=== PATIENT | male | born 1965 | race Two or more races ===

== ENCOUNTER 2025-06-01 19:44 | Inpatient (IN) | payer BC, OTHER ==
[~2025-06-01] VITALS: Ht 172.7 cm; Wt 69.4 kg
--- NOTE | 2025-06-01 21:22 | DVH ---
CT BRAIN WITHOUT CONTRAST HISTORY: DIZZINESS TECHNIQUE: Axial scans were obtained from the skull base through the vertex without contrast. Sagitta l and coronal reformats were generated. One or more of the following radiation dose reduction techniq ues were used for this examination: automated exposure control, adjustment of the mA and/or kV accord ing to patient size, use of iterative reconstruction technique. COMPARISON: None FINDINGS: No acute intracranial hemorrhage or evidence of large vessel territorial infarction identified at thi s time. No midline shift. The basilar cisterns are patent. Yanez-white differentiation appears relati vely preserved. The visualized paranasal sinuses and mastoid air cells are clear. No grossly displaced calvarial abno rmalities identified. IMPRESSION: No acute intracranial findings.
[2025-06-01 22:25] LABS: Hematocrit 47.2 % (41.0-53.0); Hemoglobin 16.0 g/dL (13.5-17.5); Mean Corpuscular Hemoglobin 30.1 pg (28.0-32.0); Mean Corpuscular Volume 88.8 fL (80.0-100.0); Nucleated Red Blood Cells % 0.1 %
[2025-06-01 22:32] LABS: Chloride 106 mmol/L (98-107); Potassium 4.4 mmol/L (3.5-5.1); Sodium 141 mmol/L (136-145)
[2025-06-01 22:33] LABS: Anion Gap 6 (5-15); Calcium 9.6 mg/dL (8.7-10.4); Carbon Dioxide 29 mmol/L (20-31)
[2025-06-01 22:38] LABS: BUN/Creatinine Ratio 13.5 (10.0-20.0); Blood Urea Nitrogen 15 mg/dL (9-23)
[2025-06-01 22:39] LABS: Glucose 121 mg/dL (74-106)
--- NOTE | 2025-06-01 22:49 | ED.PDOC ---
HPI (NEURO) HPI Comments 60-year-old male with history of diabetes brought in by private car, referred by [facility] for evaluation of a head injury with resultant dizziness, right eyelid droop, and jaw weakness. Patient states he lost his balance and fell about a week ago, hitting the occipital part of his head on the ground and losing consciousness for what he states was a few minutes. He did not seek medical attention at that time. He states that since the fall, he has had dizziness, an occipital headache, and difficulty chewing due to jaw weakness. He also reports that he woke up the next morning after the fall with a drooping right eyelid. He denies any other areas of focal weakness, nausea or vomiting. Chief Complaint: Dizziness Time Seen by MD: 23:05 Reviewed Notes: Nurses Notes Information Source: Patient Mode of Arrival: Ambulatory Severity: Moderate Dizziness/Weakness Severity: Unable to do activities Headache Severity: Moderate Timing: Days Duration: Intermittent Past Medical History PAST MEDICAL HISTORY: DM Surgical History: Hernia Repair Family History Family History: Reviewed,noncontributory to illness Social History Smoker: Non-Smoker Alcohol: Denies ETOH Use Drugs: Denies Drug Use Lives In: Home Constitutional: denies: chills, diaphoresis, fatigue, fever, malaise, sweats, weakness, others EENTM: denies: blurred vision, double vision, ear bleeding, ear discharge, ear drainage, ear pain, ear ringing, eye pain, eye redness, hearing loss, mouth pain, mouth swelling, nasal discharge, nose bleeding, nose congestion, nose pain, photophobia, tearing, throat pain, throat swelling, voice changes, others Respiratory: denies: cough, hemoptysis, orthopnea, SOB at rest, shortness of breath, SOB with excertion, stridor, wheezing, others Cardiovascular: denies: chest pain, dizzy spells, diaphoresis, Dyspnea on exertion, edema, irregular heart beat, left arm pain, lightheadedness, palpitations, PND, syncope, others Gastrointestinal: denies: abdomen distended, abdominal pain, blood streaked bowels, constipated, diarrhea, dysphagia, difficulty swallowing, hematemesis, melena, nausea, poor appetite, poor fluid intake, rectal bleeding, rectal pain, vomiting, others Genitourinary: denies: burning, dysuria, flank pain, frequency, hematuria, incontinence, penile discharge, penile sore, pain, testicle pain, testicle swelling, urgency, others Neurological: reports: dizziness, headache, right sided weakness (facial), others (imbalance); denies: fainting, left sided numbness, left sided weakness, numbness, paresthesia, pre-existing deficit, seizure, speech problems, tingling, tremors, weakness Musculoskeletal: denies: back pain, gout, joint pain, joint swelling, muscle pain, muscle stiffness, neck pain, others Integumetry: denies: bruises, change in color, change in hair/nails, dryness, laceration, lesions, lumps, rash, wounds, others Allergic/Immunocompromised: denies: Difficulty Healing, Frequent Infections, Hives, Itching, others Hematologic/Lymphatic: denies: anemia, blood clots, easy bleeding, easy bruising, swollen glands, others Endocrine: denies: excessive hunger, excessive sweating, excessive thirst, excessive urination, flushing, intolerance to cold, intolerance to heat, unexplained weight gain, unexplained weight loss, others Psychiatric: denies: anxiety, bipolar disorder, depression, hopeless, panic disorder, schizophrenia, sleepless, suicidal, others All Other Systems: Reviewed and Negative (Comprehensive systems review obtained and negative except for what is stated in the HPI.) Physical Exam General Appearance: No Apparent Distress HEENT: PERRL/EOMI, Other (Pupils equal, subtle loss of right nasolabial fold. Right eyelid ptosis.) Neck: Full Range of Motion, Non-Tender, Normal Inspection, Supple Respiratory: Lungs Clear, No Accessory Muscle Use, No Respiratory Distress, Normal Breath Sounds Cardiovascular: No Edema, No JVD, Regular Rate/Rhythm Breast Exam: Deferred Gastrointestinal: Non Tender, Soft Genitalia: Deferred Pelvic: Deferred Rectal: Deferred Extremities: Normal inspection, Normal range of motion, Non-tender, No pedal edema Neurologic: Alert (Oriented x4), Normal Affect, Normal Mood, Other (Very subtle loss of the nasolabial fold on the right, right eyelid ptosis) Cerebellar Function: NOT DONE Reflexes: NOT DONE Skin: Dry, Normal Color, Warm Lymphatic: NOT DONE Was a procedure done? Was a procedure done?: No Differential Diagnosis (SZ) CVA: CVA, Electrolyte Imbalance, TIA Headache: Closed Head Injury, Epidural Hemorrhage, Intracerebral Hemorrhage, Subarachnoid Hemorrhage, Subdural Hemorrhage X-Ray, Labs, Meds, VS Vital Signs Date Time Temp Pulse Resp B/P (MAP) Pulse Ox O2 Delivery O2 Flow Rate FiO2 06/01/25 19:49 98.3 84 16 117/81 98 98.3 Lab Test 06/01/25 22:52 06/01/25 22:12 Range/Units Troponin I High Sensitivity 21 21 </=54 ng/L White Blood Count 10.8 4.4-10.8 10^3/uL Red Blood Count 5.32 4.5-5.90 10^6/uL Hemoglobin 16.0 13.5-17.5 g/dL Hematocrit 47.2 41.0-53.0 % Mean Corpuscular Volume 88.8 80.0-100.0 fL Mean Corpuscular Hemoglobin 30.1 28.0-32.0 pg Mean Corpuscular Hemoglobin Concent 33.8 32.0-36.0 g/dL Red Cell Distribution Width 14.4 H 11.8-14.3 % Platelet Count 261 140-450 10^3/uL Mean Platelet Volume 9.1 6.9-10.8 fL Neutrophils (%) (Auto) 56.0 37.0-80.0 % Lymphocytes (%) (Auto) 35.2 10.0-50.0 % Monocytes (%) (Auto) 6.5 0.0-12.0 % Eosinophils (%) (Auto) 2.1 0.0-7.0 % Basophils (%) (Auto) 0.2 0.0-2.0 % Neutrophils # (Auto) 6.0 1.6-8.6 10 ^3/uL Lymphocytes # (Auto) 3.8 0.4-5.4 10 ^3/uL Monocytes # (Auto) 0.7 0-1.3 10 ^3/uL Eosinophils # (Auto) 0.2 0-0.8 10 ^3/uL Basophils # (Auto) 0 0-0.2 10 ^3/uL Nucleated Red Blood Cells 0.1 % Sodium Level 141 136-145 mmol/L Potassium Level 4.4 3.5-5.1 mmol/L Chloride Level 106 98-107 mmol/L Carbon Dioxide Level 29 20-31 mmol/L Anion Gap 6 5-15 Blood Urea Nitrogen 15 9-23 mg/dL Creatinine 1.11 0.700-1.30 mg/dL Glomerular Filtration Rate Calc 77 >90 mL/min BUN/Creatinine Ratio 13.5 10.0-20.0 Serum Glucose 121 H 74-106 mg/dL Calcium Level 9.6 8.7-10.4 mg/dL B-Type Natriuretic Peptide 32.66 0-100 pg/mL CT BRAIN WITHOUT CONTRAST HISTORY: DIZZINESS TECHNIQUE: Axial scans were obtained from the skull base through the vertex without contrast. Sagittal and coronal reformats were generated. One or more of the following radiation dose reduction techniques were used for this examination: automated exposure control, adjustment of the mA and/or kV according to patient size, use of iterative reconstruction technique. COMPARISON: None FINDINGS: No acute intracranial hemorrhage or evidence of large vessel territorial infarction identified at this time. No midline shift. The basilar cisterns are patent. Yanez-white differentiation appears relatively preserved. The visualized paranasal sinuses and mastoid air cells are clear. No grossly displaced calvarial abnormalities identified. IMPRESSION: No acute intracranial findings. X-Ray, Labs, Meds, VS Comment 60-year-old male with a history of diabetes referred by [facility] for evaluation of right eyelid ptosis and jaw weakness, associated with dizziness and headache after a fall with head trauma and loss of consciousness 1 week ago Vitals unremarkable Exam remarkable for subtle loss of nasolabial fold on the right with right eyelid ptosis Rhythm strip independently interpreted by me: Sinus rhythm, rate 84, no ectopy. Head CT unremarkable CBC, basic metabolic panel, BNP and troponin unremarkable No acute treatment indicated in the ED Plan is to admit the patient for brain MRI and neuro evaluation Case discussed with RONY Rausch, who will admit the patient. Time of 1ST Reevaluation: 23:07 Reevaluation 1ST: Unchanged Patient Education/Counseling: Diagnosis, Treatment, Need For Follow Up Family Education/Counseling: No Family Present Departure 1 Departure Time of Disposition: 23:20 Impression: Primary Impression: Traumatic injury of head with loss of consciousness Additional Impression: Ptosis, right eyelid Disposition: ADMITTED INPATIENT Admit to: Tele Condition: Guarded Critical Care Note Critical Care Time?: No Stability Stability form required: No Heart Score Heart Score: Heart Score Response (Comments) Value History N/A 0 EKG N/A 0 Age N/A 0 Risk Factors N/A 0 Troponin N/A 0 Total 0 I personally scribed for DUNCAN BELTRAN MD (JONATHANCHLOÉ) on 06/01/25 at 22:49. Electronically submitted by Benton Salvador ([facility]). I personally scribed for DUNCAN BELTRAN MD (JONATHANCHLOÉ) on 06/01/25 at 23:00. Electronically submitted by Benton Salvador ([facility]). I personally scribed for [facility]UNC[facility] BELTRAN [facility] on 06/01/25 at 23:07. Electronically submitted by Benton Salvador ([facility]). I personally scribed for DUNCAN BELTRAN MD ([facility] on 06/01/25 at 23:15. Electronically submitted by Benton Salvador ([facility]). DUNCAN BELTRAN MD Jun 01, 2025 22:49
[2025-06-01] MEDS ORDERED: ACETAMINOPHEN 325 MG TAB PO PRN (23:45)
[2025-06-01] MEDS ORDERED: ONDANSETRON HCL 4 MG/2 ML VIAL IV PRN (23:45)
--- NOTE | 2025-06-02 00:58 | DVHHP2 ---
Admitting Diagnosis: Dizziness, ptosis right eye ,status post Fall, r/o cva History of Present Illness History Source: Patient Exam Limitations: No limitations HPI Mr. Alex Dickerson is a 60-year-old male with a history of diabetes, patient was referred by [facility] urgent care for evaluation of a head injury with resultant dizziness, right eyelid droop, and jaw weakness. Patient states he lost his balance and fell about a week ago, hitting the occipital part of his head on the ground and losing consciousness for what he states was a few minutes. He did not seek medical attention at that time. He states that since the fall, he has had dizziness, an occipital headache, and difficulty chewing due to jaw weakness. He also reports that he woke up the next morning after the fall with a drooping right eyelid. He denies any other areas of focal weakness, nausea or vomiting. Past Medical History Cardiac: No pertinent Hx Pulmonary: No pertinent Hx Central Nervous System: No pertinent Hx GI: No pertinent Hx Hemotology/Oncology: No pertinent Hx Hepatobiliary: No pertinent Hx Psychiatric: No pertinent Hx Musculoskeletal: No pertinent Hx Rheumotologic: No pertinent Hx Infectious Disease: No peritnent Hx ENT: No pertinent Hx Renal/: No pertinent Hx Endocrine: NIDDM Dermatology: No pertinent Hx Smoker: <1 pack per day Alocohol: None Drugs: None Lives with: With family Domestic Violence: Neg Review of Systems Constitutional: Weakness (right side, right eye ptosis) Ears, Nose, & Throat: No symptom reported Eyes: No symptom reported Pulmonary/Respiratory: No symptom reported Cardiovascular: No symptom reported Gastrointestinal: No symptom reported Genitourinary: No symptom reported Musculoskeletal: No symptom reported Skin: No symptom reported Psychiatric: No symptom reported Endocrine: No symptom reported Hemotologic/Lymphatic: No symptom reported All Other Systems Dizziness H&P Exam Vital Signs Vital Signs Date Time Temp Pulse Resp B/P (MAP) Pulse Ox O2 Delivery O2 Flow Rate FiO2 06/01/25 19:49 98.3 84 16 117/81 98 98.3 General Appeara: Well developed, Well nourished, Normal Appearance Head Exam: Normal inspection Neck Exam: Normal inspection, Non-tender, Normal alignment Eye Exam: bilateral eye Normal inspection, bilateral eye PERRL, bilateral eye EOMI Ear Exam: bilateral ear Auricle normal Nasal Exam: Normal inspection Mouth: Normal Inspection Pulmonary/Respiratory: Normal inspection, Normal breath sounds, Chest non- tender, Lungs clear Cardiovascular/Chest: Normal inspection, Regular rate, Normal Rhythm Peripheral Pulses: 2+ dorsalis pedis (R), 2+ dorsalis pedis (L), 2+ Radial (R), 2+ Radial (L) Abdominal Exam: Normal bowel sounds, Soft, No tenderness Rectal Exam: Deferred Back Exam: Normal inspection Hand Exam: Other (right sided weakness) AUDITOR TAX Exam: Normal hearing, Normal speech, PERRL, Other (right eye ptosis) Motor/Sensory: Normal sensory function, Weak motor strength RUE Neuro/Mental St: Alert, Oriented Appearance: Appropriate appearance, Appropriate insight Eye contact/ Speech: Cooperative, Good eye contact, Normal speech Thoughts/Psych: Normal thought pattern Skin Exam: Normal inspection, Normal color, Warm/dry SEPSIS Sepsis Screen Date sepsis recognized/suspect: Jun 01, 2025 Time Sepsis recognized/suspect: 1954 Recent Procedure: No Respiratory Rate >20: No Heart Rate >90: No Temp<36 C (96.8 F) or >38.3 C: No SBP <90 or MAP <65 mmHG: No New Acute Mental Status Change: No Is the patient on CPAP, BIPAP,: No Physician Orders Head Without Contrast (06/01/25 20:01) Urinalysis (06/01/25 22:01) Electrocardigram (06/01/25 22:01) Admit (06/01/25 23:35) Brain Head Wo Contrast (06/01/25 23:35) * Neurology Consult (06/01/25 23:35) Echo 2d Mode Cardiac Dop (06/01/25 23:35) * Cardiology Consult (06/01/25 23:35) Consistent Carb(Ccho)Diabetes (06/02/25 Breakfast) Full Code (06/01/25 23:35) Stat Ekg For Chest Pain (06/01/25 23:35) Notify Md Of Changes From Base (06/01/25 23:35) Ceramic Coater Machine For 24 Hours (06/01/25 23:35) Emergency Dysrhythmia Protocol (06/01/25 23:35) Rhythm Strips Once Every Shift (06/01/25 23:35) Oxygen By Nasal Cannula (06/01/25 23:35) Vitamin B12 (06/02/25 04:00) Ondansetron Hcl (Zofran) (06/01/25 23:45) Acetaminophen Tablet (Tylenol Tablet) (06/01/25 23:45) Famotidine Tablet (Pepcid Tablet) (06/02/25 10:00) Sequential Compression Device (06/01/25 23:35) Vital Signs Date Time Temp Pulse Resp B/P (MAP) Pulse Ox O2 Delivery O2 Flow Rate FiO2 06/01/25 19:49 98.3 84 16 117/81 98 98.3 Laboratory Tests Test 06/01/25 22:12 White Blood Count 10.8 10^3/uL (4.4-10.8) Labs/Xrays Labs Test 06/01/25 22:52 06/01/25 22:12 Range/Units Troponin I High Sensitivity 21 </=54 ng/L White Blood Count 10.8 4.4-10.8 10^3/uL Red Blood Count 5.32 4.5-5.90 10^6/uL Hemoglobin 16.0 13.5-17.5 g/dL Hematocrit 47.2 41.0-53.0 % Mean Corpuscular Volume 88.8 80.0-100.0 fL Mean Corpuscular Hemoglobin 30.1 28.0-32.0 pg Mean Corpuscular Hemoglobin Concent 33.8 32.0-36.0 g/dL Red Cell Distribution Width 14.4 H 11.8-14.3 % Platelet Count 261 140-450 10^3/uL Mean Platelet Volume 9.1 6.9-10.8 fL Neutrophils (%) (Auto) 56.0 37.0-80.0 % Lymphocytes (%) (Auto) 35.2 10.0-50.0 % Monocytes (%) (Auto) 6.5 0.0-12.0 % Eosinophils (%) (Auto) 2.1 0.0-7.0 % Basophils (%) (Auto) 0.2 0.0-2.0 % Neutrophils # (Auto) 6.0 1.6-8.6 10 ^3/uL Lymphocytes # (Auto) 3.8 0.4-5.4 10 ^3/uL Monocytes # (Auto) 0.7 0-1.3 10 ^3/uL Eosinophils # (Auto) 0.2 0-0.8 10 ^3/uL Basophils # (Auto) 0 0-0.2 10 ^3/uL Nucleated Red Blood Cells 0.1 % Sodium Level 141 136-145 mmol/L Potassium Level 4.4 3.5-5.1 mmol/L Chloride Level 106 98-107 mmol/L Carbon Dioxide Level 29 20-31 mmol/L Anion Gap 6 5-15 Blood Urea Nitrogen 15 9-23 mg/dL Creatinine 1.11 0.700-1.30 mg/dL Glomerular Filtration Rate Calc 77 >90 mL/min BUN/Creatinine Ratio 13.5 10.0-20.0 Serum Glucose 121 H 74-106 mg/dL Calcium Level 9.6 8.7-10.4 mg/dL B-Type Natriuretic Peptide 32.66 0-100 pg/mL Assessment/Plan Problem List: (1) Dizziness (2) Traumatic injury of head with loss of consciousness (3) Ptosis, right eyelid Plan This is a 60 yo male with known history of DM who presents to the hospital with dizziness, ptosis of right eye status post fall x 1 week ago. 1. Dizziness 2. Ptosis right eye 3. status post fall 4. r/o CVA 5. DM type 2 Plan Admit Telemetry Neurology consultation, MRI Brain wo contrast , ASA, Statin Lipid panel, A1C level PT evaluation, OT evaluation, swallow evaluation Cardiology consultation 2D echocardiogram Fall Precautions Smoking cessation education Glucose monitoring ac & hs coverage with low dose regular insulin sliding scale Discussed all above with patient who verbalizes agreement and understanding of care plan. All questions were answered. Discussed with supervising MD. Plan discussed with: Patient, Other Code Visit Code Visit Total Time (mins): 45 Additional Comments Additional Comments Additional Comments Patient's chart is reviewed and discussed with the nurse practitioner. Patient is seen evaluated and admitted by H[facility]IC[facility] DETECTIVE this morning. I have evaluated him later today. His right eye droop has improved. Patient's MRI shows a possible stroke. I agree with the nurse practitioner's evaluation, documentation, assessment and care plan as outlined. DAVID HAIDER Jun 02, 2025 00:58 ABDIFATAH OLIVEIRA MD Jun 02, 2025 15:44
[2025-06-02 04:19] LABS: Triglycerides 219 mg/dL (< 150)
[2025-06-02 04:20] LABS: Cholesterol 175 mg/dL (< 200)
[2025-06-02 04:21] LABS: HDL Cholesterol 34 mg/dL (40-59)
[2025-06-02] MEDS ORDERED: DEXTROSE (50%) 50ML SYRG IV PRN (06:15)
[2025-06-02 06:31] LABS: Hematocrit 44.5 % (41.0-53.0); Hemoglobin 15.2 g/dL (13.5-17.5); Mean Corpuscular Hemoglobin 30.2 pg (28.0-32.0); Mean Corpuscular Volume 88.4 fL (80.0-100.0); Nucleated Red Blood Cells % 0.2 %
[2025-06-02 06:32] LABS: Chloride 107 mmol/L (98-107); Potassium 4.3 mmol/L (3.5-5.1); Sodium 143 mmol/L (136-145)
[2025-06-02 06:33] LABS: Anion Gap 7 (5-15); Calcium 9.4 mg/dL (8.7-10.4); Carbon Dioxide 29 mmol/L (20-31)
[2025-06-02 06:38] LABS: BUN/Creatinine Ratio 14.0 (10.0-20.0); Blood Urea Nitrogen 15 mg/dL (9-23); Glucose 115 mg/dL (74-106)
[2025-06-02 06:40] LABS: INR 0.94 (0.9-1.15); Prothrombin Time 10.0 sec (9.3-11.8)
[2025-06-02] MEDS: ACCU-CHEK COMFORT CURVE STRIP VI SCH (07:00)
[2025-06-02] MEDS: InsuLIN REG 1unit/0.01ml Soln (100units/ml) SC SCH (07:00)
[2025-06-02] MEDS: ASPirin-EC 81 mg tab PO SCH (08:51)
[2025-06-02] MEDS ORDERED: ASPirin-EC 81 mg tab PO SCH (10:00)
[2025-06-02] MEDS: FAMOTIDINE 20 MG TAB PO SCH (10:53)
--- NOTE | 2025-06-02 13:32 | DVH ---
CLINICAL INDICATION: dizziness COMPARISON: CT HEAD WITHOUT CONTRAST on DOS: 06/01/25 TECHNIQUE: Multisequence multiplanar MRI images of the brain were obtained without contrast. FINDINGS: Small focus of restricted diffusion in the head of the left caudate nucleus measuring up t o 4 mm, suspected acute or subacute infarct. No mass or midline shift. Scattered areas of T2/FLAIR hy perintense signal in the periventricular and subcortical white matter are nonspecific, but most likel y sequelae of chronic small vessel ischemic disease. Ventricles and sulci are within normal limits. B pramod cisterns are patent. Cerebellum, brainstem, and midline structures are otherwise within normal l imits. Paranasal sinuses are clear. Orbits are grossly unremarkable. IMPRESSION: 1. Acute or subacute lacunar infarct in the head of the left caudate nucleus. 2. Nonacute findings as described above.
[2025-06-02] MEDS: IOHEXOL 350 MG/ML 100ML IJ ONE (14:01)
[2025-06-02 14:21] VITALS: BP 136/82; PULSE 68; RESP 18; TEMP 97.2; O2SAT 97
[2025-06-02 14:35] VITALS: BP 136/82; PULSE 68; RESP 18; TEMP 97.2; O2SAT 97
--- NOTE | 2025-06-02 14:57 | DVH ---
CLINICAL INFORMATION: Transient ischemic attack. TECHNIQUE: Axial CTA images of the head and neck were obtained after the uneventful administration o f 100 mL Omnipaque 350 IV contrast. Coronal and sagittal reformatted images and MIP images were obtai james, reviewed, and stored. Measurements of carotid stenosis are made per NASCET criteria. All CT scan s at this medical facility are performed using dose modulation techniques as appropriate to a perform ed exam including the following: Automated exposure control was utilized; adjustment of the MA and/or KV according to patient size; and use of iterative reconstruction technique. CTDIvol = 22.35, 31.05, 0.07, 0.07 mGy DLP = 933.92 mGy-cm COMPARISON: MRI BRAIN HEAD WO CONTRAST on DOS: 06/02/25, CT HEAD WITHOUT CONTRAST on DOS: 06/01/25 FINDINGS: Motion artifact limits evaluation for subtle findings. CTA HEAD: Posterior cerebral arteries, basilar artery, and intracranial segments of the distal verteb ral arteries are normal in caliber and course with no evidence of aneurysm, large vessel occlusion, s ignificant stenosis, or vascular malformation. The anterior and middle cerebral arteries and intracra nial segments of the distal internal carotid arteries are normal in caliber and course with no eviden ce of aneurysm, large vessel occlusion, significant stenosis, or vascular malformation. CTA NECK: Normal configuration of the aortic arch with patent origins of the brachiocephalic artery, left common carotid artery, and left subclavian artery. There is mild irregular plaque of the left in ferolateral wall of the aortic arch at or slightly distal to the level of the subclavian artery origi n. Subclavian arteries are patent with no significant stenosis. Moderate noncalcified plaque of the l eft carotid bifurcation and proximal internal carotid artery without significant stenosis of the left internal carotid artery or left common carotid artery. There is severe stenosis of the proximal left external carotid artery. There is calcified and noncalcified plaque of the right carotid bifurcation without significant right carotid stenosis. Vertebral arteries are patent with no significant stenos is or evidence of dissection. IMPRESSION: 1. CTA head demonstrates no evidence of large vessel occlusion, aneurysm, or significant stenosis. 2. CTA neck demonstrates noncalcified plaque at the left carotid bifurcation and proximal internal ca rotid artery with severe stenosis of the origin of the left external carotid artery. No significant s tenosis in the left common carotid or internal carotid artery. 3. Calcified and noncalcified plaque at the right carotid bifurcation without significant stenosis. 4. No evidence of vertebral artery dissection or stenosis. 5. Small focus of irregular, predominantly noncalcified plaque at the left inferolateral wall of the aortic arch. Potentially unstable plaque, appears to be at or slightly distal to the level of the sub clavian artery origin. 6. Additional findings as detailed above.
[2025-06-02] MEDS: SODIUM CHLORIDE 0.9% 1,000 ML IV SCH (15:15)
[2025-06-02 17:00] VITALS: BP 135/81; PULSE 74; RESP 17; TEMP 97.6; O2SAT 95
[2025-06-02 20:00] VITALS: PULSE 74
[2025-06-02 21:00] VITALS: BP 131/73; PULSE 68; RESP 17; TEMP 98.2; O2SAT 96
[2025-06-02] MEDS: ATORVASTATIN 20 MG TAB PO SCH (22:20)
[2025-06-03] VITALS (8 sets, daily range): BP systolic 125–138; BP diastolic 78–97; PULSE 74–106; RESP 16–18; TEMP 97.9–98.3; O2SAT 91–97
--- NOTE | 2025-06-03 09:57 | DVHINCON2 ---
DATE OF CONSULTATION: 06/02/2025 CARDIOLOGY CONSULTATION REFERRING PHYSICIAN: CONSULTING PHYSICIAN: Lori Gant MD INDICATION: Dizziness. HISTORY OF PRESENT ILLNESS: The patient is a 60-year-old male with a history of diabetes who presented to the hospital with complaints of dizziness, right eye ptosis, and right upper extremity weakness. The patient stated that he fell about a week ago; however, did not seek any medical help at the time. He has been feeling dizzy and facial droop. He decided to come to the Emergency Room for further evaluation. He denies any prior history of heart disease known to him. He denies any palpitations. He denies any chest pain or shortness of breath. PAST MEDICAL HISTORY: Diabetes. MEDICATIONS: Per med rec. ALLERGIES: No known drug allergies. PHYSICAL EXAMINATION: GENERAL: He is alert and oriented in no form of acute cardiopulmonary distress. VITAL SIGNS: Blood pressure 130/70, pulse 68 per minute, saturation 96%. HEENT/NECK: No carotid bruits. No jugular venous distention. CHEST: Bilateral air entry, clear. No rhonchi. CARDIOVASCULAR: Precordial and carotid pulses palpable. Normal S1, S2. Regular rate and rhythm. No appreciable gallops, rubs, or clicks. EXTREMITIES: No peripheral edema. DIAGNOSTIC DATA: CBC is normal. White count 143, potassium 4.3, creatinine is 1.0. Troponin is negative. Urine tox was negative. ASSESSMENT: * Dizziness stroke * Right eye ptosis. * Diabetes. RECOMMENDATIONS: * Continue aspirin. * Continue statin therapy. * Neuro evaluation in progress. * We will review echo once completed. * Continue radiation monitor for now. Thank you for allowing me to partake in the care of this patient. MD JESUSITA Esteban/ESTELA/NIKHIL TID: [id number] RECEIPT: [id number]
--- NOTE | 2025-06-03 10:24 | DVHSR ---
APPROVED REPORT EXAM: Two-dimensional and M-mode echocardiogram with Doppler and color Doppler. Blood Pressure: 117/66 mmHg INDICATION Dizziness RISK FACTORS Height: 5'8", Weight: 153 DIMENSIONS LVDd5.5 (3.8-5.7cm)LA (2D)3.3 (1.9-4.0cm)Aortic Root3.3 (2.0-3.7cm) LVDs4.4 (2.5-4.0cm)LA (MM) (1.9-4.0cm)Aortic Cusp Exc1.3 (1.5-2.0cm) EF (%) 35.0 (55-70%)Rt. Atrium3.4 (1.9-4.0cm)Asc. Aorta cm IVSd0.9 (0.7-1.1cm)RV (D)3.3 (1.8-2.4cm) PWd0.8 (0.7-1.1cm) Mitral Valve MitralMitral Stenosis E wave0.64m/sMV Mean GR.mmHg A wave0.82m/sMV Peak GR.mmHg E/A ratio0.82D MVAcm2 DECEL [id number] 1/2 Timems Aortic Valve Aortic ValveAortic Stenosis V10.60m/Joaquina Mean GR.2mmHg V21.04m/Joaquina Peak GR.4mmHg LVOT Diameter2.0 (1.8-2.4cm)Doppler AVA1.81cm2 Pulmonic Valve V20.85m/s Conclusion [id number]% normal rv function normal atria
[2025-06-03] MEDS ORDERED: ATOR40TA52 PO (15:17)
[2025-06-03] MEDS ORDERED: ASPI-543 PO (15:17)
[2025-06-03] MEDS ORDERED: RAMI2.5C33 PO (15:17)
[2025-06-03] MEDS ORDERED: CLOP75TA70 PO (15:17)
--- NOTE | 2025-06-03 15:40 | DVHDS2 ---
Discharge Summary Date of Admission Jun 01, 2025 at 23:35 Date of Discharge: Jun 03, 2025 Labs/Diagnostic Data: Laboratory Results Test 06/03/25 11:57 06/02/25 03:40 06/01/25 22:52 06/01/25 22:12 POC Glucose 128 mg/dl (70-106) White Blood Count 12.3 10^3/uL (4.4-10.8) Red Blood Count 5.03 10^6/uL (4.5-5.90) Hemoglobin 15.2 g/dL (13.5-17.5) Hematocrit 44.5 % (41.0-53.0) Mean Corpuscular Volume 88.4 fL (80.0-100.0) Mean Corpuscular Hemoglobin 30.2 pg (28.0-32.0) Mean Corpuscular Hemoglobin Concent 34.1 g/dL (32.0-36.0) Red Cell Distribution Width 14.4 % (11.8-14.3) Platelet Count 255 10^3/uL (140-450) Mean Platelet Volume 9.8 fL (6.9-10.8) Neutrophils (%) (Auto) 56.6 % (37.0-80.0) Lymphocytes (%) (Auto) 34.3 % (10.0-50.0) Monocytes (%) (Auto) 7.2 % (0.0-12.0) Eosinophils (%) (Auto) 1.7 % (0.0-7.0) Basophils (%) (Auto) 0.2 % (0.0-2.0) Neutrophils # (Auto) 7.0 10 ^3/uL (1.6-8.6) Lymphocytes # (Auto) 4.2 10 ^3/uL (0.4-5.4) Monocytes # (Auto) 0.9 10 ^3/uL (0-1.3) Eosinophils # (Auto) 0.2 10 ^3/uL (0-0.8) Basophils # (Auto) 0 10 ^3/uL (0-0.2) Nucleated Red Blood Cells 0.2 % Prothrombin Time 10.0 sec (9.3-11.8) Prothrombin Time INR 0.94 (0.9-1.15) Sodium Level 143 mmol/L (136-145) Potassium Level 4.3 mmol/L (3.5-5.1) Chloride Level 107 mmol/L (98-107) Carbon Dioxide Level 29 mmol/L (20-31) Anion Gap 7 (5-15) Blood Urea Nitrogen 15 mg/dL (9-23) Creatinine 1.07 mg/dL (0.700-1.30) Glomerular Filtration Rate Calc 80 mL/min (>90) BUN/Creatinine Ratio 14.0 (10.0-20.0) Serum Glucose 115 mg/dL (74-106) Hemoglobin A1c 6.1 % A1C (<5.7) Calcium Level 9.4 mg/dL (8.7-10.4) Triglycerides Level 219 mg/dL (< 150) Cholesterol Level 175 mg/dL (< 200) LDL Cholesterol 126 mg/dL (< 100) HDL Cholesterol 34 mg/dL (40-59) Troponin I High Sensitivity 21 ng/L (</=54) B-Type Natriuretic Peptide 32.66 pg/mL (0-100) Other Laboratory Tests 06/02/25 03:40 Brief Hx & Hospital Course: Mr. Alex Dickerson is a 60-year-old male with a history of diabetes, patient was referred by [facility] urgent care for evaluation of a head injury with resultant dizziness, right eyelid droop, and jaw weakness. Patient states he lost his balance and fell about a week ago, hitting the occipital part of his head on the ground and losing consciousness for what he states was a few minutes. He did not seek medical attention at that time. He states that since the fall, he has had dizziness, an occipital headache, and difficulty chewing due to jaw weakness. He also reports that he woke up the next morning after the fall with a drooping right eyelid. He denies any other areas of focal weakness, nausea or vomiting. He is admitted and evaluated by backend developer. Patient had an MRI of the brain showed a acute to subacute infarction felt causing her symptoms. Patient's symptoms improved while in the hospital. His toes is also improved. However he is advised to follow up outpatient with a neurologist for follow up stroke and further evaluation of his eyelid droop/ptosis to rule out underlying myasthenia gavis. Otherwise he is advised to continue the medications he is prescribed. Given he is clinically stable not having any other issues he has been discharged home. Patient verbalized understanding his hospital diagnosis, med results, discharge medications, discharge instructions and agree with the follow up plan of care as outlined. Consults/Reason for consult PROCEDURE(s): MBHL - BRAIN HEAD WO CONTRAST REASON: dizziness ORDER NUMBER(s): [id number], ACCESSION NUMBER(s): [id number] CLINICAL INDICATION: dizziness COMPARISON: CT HEAD WITHOUT CONTRAST on DOS: 06/01/25 TECHNIQUE: Multisequence multiplanar MRI images of the brain were obtained without contrast. FINDINGS: Small focus of restricted diffusion in the head of the left caudate nucleus measuring up to 4 mm, suspected acute or subacute infarct. No mass or midline shift. Scattered areas of T2/FLAIR hyperintense signal in the periventricular and subcortical white matter are nonspecific, but most likely sequelae of chronic small vessel ischemic disease. Ventricles and sulci are within normal limits. Basal cisterns are patent. Cerebellum, brainstem, and midline structures are otherwise within normal limits. Paranasal sinuses are clear. Orbits are grossly unremarkable. IMPRESSION: 1. Acute or subacute lacunar infarct in the head of the left caudate nucleus. 2. Nonacute findings as described above. Operations or Procedures APPROVED REPORT EXAM: Two-dimensional and M-mode echocardiogram with Doppler and color Doppler. Blood Pressure: 117/66 mmHg INDICATION Dizziness RISK FACTORS Height: 5'8", Weight: 153 DIMENSIONS LVDd 5.5 (3.8-5.7cm) LA (2D) 3.3 (1.9-4.0cm) Aortic Root 3.3 (2.0- 3.7cm) LVDs 4.4 (2.5-4.0cm) LA (MM) (1.9-4.0cm) Aortic Cusp Exc 1.3 (1.5- 2.0cm) EF (%) 35.0 (55-70%) Rt. Atrium 3.4 (1.9-4.0cm) Asc. Aorta cm IVSd 0.9 (0.7-1.1cm) RV (D) 3.3 (1.8-2.4cm) PWd 0.8 (0.7-1.1cm) Mitral Valve Mitral Mitral Stenosis E wave 0.64m/s MV Mean GR. mmHg A wave 0.82m/s MV Peak GR. mmHg E/A ratio 0.8 2D MVA cm2 DECEL Time 201ms PRESS 1/2 Time ms Aortic Valve Aortic Valve Aortic Stenosis V1 0.60m/s AO Mean GR. 2mmHg V2 1.04m/s AO Peak GR. 4mmHg LVOT Diameter 2.0 (1.8-2.4cm) Doppler [place] 1.81cm2 Pulmonic Valve V2 0.85m/s Conclusion [id number]% normal rv function normal atria SIGNED BY: MANDEEP JOEL MD SIGNED DATE/TIME: 06/03/25 1024 Condition at Discharge: Stable Final Diagnosis/Problems List Acute/subacute lacunar infarction, right eye ptosis, coronary artery disease Discharge Disposition: Home Discharge Instruct/Medications Diet: Consistent carbohydrate, Cardiac 2g Na,low cholest Activity: No Restrictions, As Tolerated Follow Up/Referral: Primary care physician next week and referral to neurologist Dr. Charlotte Kaplan as soon as possible for right eye ptosis and further management of stroke Medications: As prescribed and per your discharge home med reconciliation list Scheduled Aspirin (Aspir-Low), 81 MG PO DAILY Atorvastatin Calcium (Atorvastatin Calcium), 1 TAB PO QPM Clopidogrel Bisulfate (Clopidogrel), 75 MG PO DAILY Ramipril (Ramipril), 1 CAP PO DAILY Discharge Statement: "Patient was advised to return to the ER or call 911 if any headaches, dizziness, shortness of breath, chest pain, abdominal pain, bleeding, fevers, or worsening of medical condition. Patient was counseled about treatment plan, medications, possible side effects, patientverbalized understanding. All questions were answered to the best of my ability. This discharge took greater then 30 minutes in planning, reviewing documentation, counseling the patient, and discussing with other team members." ASSESSMENT ASSESSMENT Assessment Acute/subacute lacunar infarction, right eye ptosis, coronary artery disease ABDIFATAH OLIVEIRA MD Jun 03, 2025 15:40
== END 2025-06-03 18:50 | disposition home or self-care (01) | DRG 66 ==
LOC: ER 19:44 → OVERFLOW 23:35 → TELE-CENTR 06-02 14:21
PROVIDERS: ADMIT Nurse Practitioner Family; ATTEND Nurse Practitioner Family
DX: I63.81 Other cerebral infarction due to occlusion or stenosis of small artery (principal); H02.401 Unspecified ptosis of right eyelid; E11.9 Type 2 diabetes mellitus without complications; R29.810 Facial weakness; I25.10 Atherosclerotic heart disease of native coronary artery without angina pectoris; F17.200 Nicotine dependence, unspecified, uncomplicated; Z71.6 Tobacco abuse counseling; Z79.84 Long term (current) use of oral hypoglycemic drugs
CPT/HCPCS: 36415; 70450; 70496; 70498; 70551; 80048; 80061; 82607; 82962; 83036; 83880; 84484; 85025; 85610; 92610; 93306; 97163; G0378; J1815; J2405

== ENCOUNTER 2025-10-08 07:01 | Day surgery (SDC) | payer BC ==
[~2025-10-08] VITALS: Ht 172.7 cm; Wt 62.1 kg
[~2025-10-08 07:01] MED LIST: ASPI-543 PO; ATOR-47 PO; CLOP75TA70 PO; METF-370 PO; PRED20TA2 PO; RAMI2.5C33 PO; SEMA2INJ3 SC; [UNRECOGNIZED DRUG - CODE] PO
[2025-10-08] MEDS: IODIXANOL 320MG/ML 100ML BTL IV ONE (08:44)
[2025-10-08] MEDS: ANGIOMAX 250 MG VIAL IV ONE (08:53)
[2025-10-08] MEDS: SODIUM CHL 0.9% 0 ML ONE (08:53)
[2025-10-08] MEDS: HEPARIN SODIUM (PORCINE) 5000 UNITS/ML 1ML VIAL ONE (08:53)
[2025-10-08] MEDS: LIDOCAINE 2%HCL (LOCAL ANESTH.) INJ 20ML MDV ONE (08:53)
[2025-10-08] MEDS: VERAPAMIL 2.5MG/ML INJ 2ML VIAL IV ONE (08:53)
[2025-10-08] MEDS: MIDAZOLAM HCL 2MG/2ML 2ml VIAL (1mg/ml) ONE (09:25)
[2025-10-08] MEDS: fentaNYL CITRATE 100 MCG/2 ML VL ONE (09:25)
--- NOTE | 2025-10-08 10:01 | DVHOP2 ---
Operative Report Operative Report CARDIAC EMAIL OPERATIONS MANAGER PROCEDURE REPORT [place], [place] Date of Service: 10/08/25 Azure Developer: Mandeep Joel MD PROCEDURES PERFORMED: Coronary angiogram, left heart catheterization, conscious sedation administration and supervision, less than 15 minutes; fluoroscopy use and interpretation. PREOPERATIVE DIAGNOSES: Abnormal stress test with CCS class 3 angina, POSTOP DIAGNOSIS: non critical cad, chf DESCRIPTION OF PROCEDURE: The patient or appropriate family signed informed consent understanding the risks, benefits and alternatives of the procedure, they wished to proceed. The patient was brought to the cardiac crime lab analyst [place]. The patient was prepped in a sterile fashion. Sedation was used per cardiac cath protocol. I administered 2 mL of 2% lidocaine to the right wrist. With an antegrade front wall puncture. I cannulated the right radial artery and placed a 6-[place] Gl[place]ath slender. Next, an intra-arterial spasmolytic was administered. Next, a - [place] catheter an were used for coronary angiogram and LVEDP measurement and pressure pullback. At the completion of procedure, all guides and wires were removed, and there were no immediate complications. 4000 U of IV heparin given. FINDINGS: RCA: Moderate vessel off the right sinus of Valsalva, there is no severe flow limiting stenosis. 30% prox stenosis. mild diffuse plaque LEFT MAIN: Moderate size left main, it bifurcates into LAD and circumflex. no severe stenosis. CIRCUMFLEX: Moderate caliber vessel coming off the left main . prox CX is patent. Om1 has ostial 40% stenosis. mid OM1 has a 60% stenosis and a superior branch with ostial plaque 90% . OM2 has a long diffuse 50% stenosis LAD: LAD is a moderate caliber vessel coming of the left main. prox LAD has 40% stenosis, mid LAD has a 50% stenosis after diag LVEDP of 2 mmhg CONCLUSIONS: 1. moderate non critical cad PLAN: Aggressive risk factor modification and medical management for the patient. asa statin consider adding repatha CHF management higher risk for future cv events MANDEEP JOEL MD Oct 08, 2025 10:01
== END 2025-10-08 12:10 | disposition home or self-care (01) ==
LOC: CATH 07:01
PROVIDERS: ATTEND Internal Medicine
DX: R94.39 Abnormal result of other cardiovascular function study (principal); I25.118 Atherosclerotic heart disease of native coronary artery with other forms of angina pectoris; I50.9 Heart failure, unspecified; F17.210 Nicotine dependence, cigarettes, uncomplicated; Z79.899 Other long term (current) drug therapy; Z79.82 Long term (current) use of aspirin
CPT/HCPCS: 93458; C1894; J1644; J2250; J3010; J7030; Q9967; 99152